=== PATIENT | male | born 1935 | race Caucasian/White ===

== ENCOUNTER 2017-05-14 05:43 | Emergency (ER) | payer OTHER, BC ==
[~2017-05-14] VITALS: Ht 182.9 cm; Wt 79.5 kg
[~2017-05-14 05:43] MED LIST: ALEVE220 M2 PO; FISH OIL 1,0001 EACH PO; LISINOPRIL20 MG PO; MULTIVITAMIN1 EAC2 PO; NORVASC10 MG PO; TUSSIONEX PENN473 ML PO
[2017-05-14 06:12] LABS: HEMATOCRIT 42.9 % (38.0-50.0); HEMOGLOBIN 15.3 G/DL (12.5-16.6); MCH 33.1 PG (29.0-34.0); MCHC 35.7 G/DL (30.0-36.0); MCV 92.9 FL (86-99); PLATELET COUNT 162 K/uL (156-360); RBC DIS.WIDTH-CV 13.2 % (11.8-14.6); RBC DIS.WIDTH-SD 44.9 % (39-53); RED BLOOD COUNT 4.62 M/uL (4.00-5.50); WHITE BLOOD COUNT 6.7 K/uL (4.1-10.2)
[2017-05-14 06:21] LABS: CHLORIDE 107 mEq/L (99-109); POTASSIUM 3.7 mEq/L (3.7-5.4); SODIUM 140 mEq/L (136-147)
[2017-05-14 06:23] LABS: GLUCOSE 127 mg/dL (70-99); TOTAL PROTEIN 7.4 g/dL (6.4-8.3)
[2017-05-14 06:25] LABS: TOTAL BILIRUBIN 1.2 mg/dL (0.0-1.0)
[2017-05-14 06:27] LABS: ALKALINE PHOSPHATASE 90 IU/L (3-129); CREATININE 1.1 mg/dL (0.6-1.3); GFR ESTIMATE (CALCULATED) > 59 mL/min/ (58.99-99999)
[2017-05-14 06:28] LABS: UREA NITROGEN (BUN) 12 mg/dL (9-23)
[2017-05-14 06:29] LABS: AST (GOT) 23 IU/L (2-34)
[2017-05-14 06:30] LABS: ALT (GPT) 22 IU/L (3-49); LIPASE 28 U/L (1.0-51.0)
[2017-05-14 06:40] LABS: APPEARANCE CLEAR ((CLEAR)); BILIRUBIN NEGATIVE; BLOOD NEGATIVE; COLOR YELLOW ((YELLOW)); GLUCOSE (STRIP) NEGATIVE; KETONES NEGATIVE; LEUKOCYTES NEGATIVE; NITRITE NEGATIVE; PROTEIN (STRIP) NEGATIVE; SPECIFIC GRAVITY 1.015 (1.000-1.030); UCUL ADDED? NO; UROBILINOGEN 0.2 MG/DL (0.2-1.0)
[2017-05-14] MEDS ORDERED: ROBITUSSIN NIG237 ML PO (09:12)
[2017-05-14] MEDS ORDERED: TESSALON200 MG PO (09:12)
[2017-05-14] MEDS ORDERED: GUAIFENESIN600 M1 PO (09:12)
[2017-05-14] MEDS ORDERED: PROVENTIL HFA6.7 GM IH (09:12)
[2017-05-14 09:31] VITALS: BP 158/86
== END 2017-05-14 09:43 | disposition home or self-care (01) ==
LOC: EME → EDBD 05:43 → EME 05:43
PROVIDERS: Emergency Medicine
DX: J20.8 Acute bronchitis due to other specified organisms (principal); R25.1 Tremor, unspecified; I44.0 Atrioventricular block, first degree; I70.0 Atherosclerosis of aorta; R91.8 Other nonspecific abnormal finding of lung field; I10 Essential (primary) hypertension; M10.9 Gout, unspecified; G61.0 Guillain-Barre syndrome
CPT/HCPCS: 71046; 80053; 81003; 83690; 85027; 87502; 93005; 94640; 99281; 99284